=== PATIENT | male | born 1955 | race Asian ===

== ENCOUNTER 2022-06-13 15:35 | Emergency (ER) | payer OTHER ==
[~2022-06-13] VITALS: Ht 182.9 cm; Wt 83.5 kg
[2022-06-13 16:02] VITALS: BP 136/81
[2022-06-13] MEDS ORDERED: CYCL5TAB PO (16:31)
== END 2022-06-13 16:36 | disposition home or self-care (01) ==
LOC: ER 15:35
DX: M54.50 Low back pain, unspecified (principal); I10 Essential (primary) hypertension; E11.9 Type 2 diabetes mellitus without complications; V89.2XXA Person injured in unspecified motor-vehicle accident, traffic, initial encounter; Y93.89 Activity, other specified; Y92.89 Other specified places as the place of occurrence of the external cause; Y99.8 Other external cause status